=== PATIENT | female | born 1955 | race Caucasian/White ===

== ENCOUNTER 2016-02-28 09:03 | Day surgery (SDC) | payer OTHER ==
[2016-02-28] MEDS ORDERED: IRON SUCROSE INJECTION 100 MG in SODIUM CHLORIDE 100 ML IVPB ONE (09:30)
[2016-02-28 12:33] VITALS: BP 125/84; PULSE 72
== END 2016-02-28 10:45 | disposition home or self-care (01) ==
LOC: FINFUSION 09:03 → FM/S 09:03 → FINFUSION 10:45
PROVIDERS: ATTEND Internal Medicine
PROC: 3E033GC Introduction of Other Therapeutic Substance into Peripheral Vein, Percutaneous Approach (ICD-10-PCS; principal; 2016-02-28)
DX: D50.9 Iron deficiency anemia, unspecified (principal)
CPT/HCPCS: 96365; J1756

== ENCOUNTER 2016-03-28 07:43 | Observation (INO) | payer OTHER ==
[2016-03-28] MEDS ORDERED: KETOROLAC TROMETHAMINE 30 MG/1 ML VIAL IVPUSH ONE ×2 (08:06→13:09)
--- NOTE | 2016-03-28 08:07 | PDOC ---
History of Present Illness - General Chief Complaint: Pain Stated Complaint: LEFT ABD PAIN Time Seen by Provider: 03/28/16 07:47 - History of Present Illness Initial Comments: 03/28/16 08:06 60-year-old female with a past medical history of hypertension, hypothyroidism, sinusitis (currently on Augmentin for the past 24 hours) Surgical history-appendectomy, gastric bypass 12 years ago, hernia repair 8 years ago Normal colonoscopy 3 years ago Patient complains of left upper quadrant to left mid abdominal pain, since yesterday, which she describes as severe and constant There is no change with eating or musculoskeletal maneuvers She denies any radiation to her back, or radiation to anywhere else on her abdomen She denies any nausea or vomiting She denies any diarrhea She states she had a normal bowel movement yesterday, without blood or black tarry stool She denies any urinary symptoms She denies any fevers or chills She states that she did eat dinner last night Patient states that she has had a recent sinus infection, and has been blowing her nose a lot, but the pain does not change with blowing her nose or coughing She denies any chest pain or shortness of breath She denies any other complaints at this time, and the remainder of the review of systems is negative Past History - Past Medical History Allergies/Adverse Reactions: Allergies Allergy/AdvReac Type Severity Reaction Status Date / Time guaifenesin [From Robitussin] Allergy Hives Verified 03/28/16 07:44 Home Medications: Ambulatory Orders Diltiazem Cd [Cardizem Cd -] 180 mg PO BID 04/13/14 Levothyroxine [Synthroid -] 125 mcg PO DAILY 04/13/14 Ramipril 0 mg PO ASDIR 05/08/15 Amoxicillin/Potassium Clav [Augmentin 875-125 Tablet] 1 each PO DAILY 03/28/16 Cholecalciferol (Vitamin D3) [Vitamin D3 -] 5,000 unit PO WE 03/28/16 Anemia: Yes HTN: Yes (CONTROLLED ON MEDICATIONS) Thyroid Disease: Yes (hypo) - Surgical History Abdominal Surgery: Yes (GASTRIC BIPASS 2003) - Psycho/Social/Smoking Cessation Hx Anxiety: No Suicidal Ideation: No Smoking History: Never smoked Have you smoked in the past 12 months: No Hx Alcohol Use: No Drug/Substance Use Hx: No Substance Use Type: None Hx Substance Use Treatment: No Review of Systems - Review of Systems Able to Perform ROS?: Yes Comments:: 03/28/16 08:11 12 point review of systems is as per history of present illness and otherwise negative *Physical Exam - Physical Exam Comments: 03/28/16 08:14 Physical exam Last Vital Signs Temp Pulse Resp BP Pulse Ox 99.9 F H 90 18 126/85 98 03/28/16 07:43 03/28/16 07:43 03/28/16 07:43 03/28/16 07:43 03/28/16 07:43 GENERAL: The patient is awake, alert, and fully oriented, and in no apparent distress. HEAD: Normal with no signs of trauma. EYES: sclera anicteric, conjunctiva are normal. ENT: Moist mucous membranes. NECK: Normal range of motion, supple LUNGS: Breath sounds equal, clear to auscultation bilaterally. No wheezes, and no crackles. HEART: Regular rate and rhythm, normal S1 and S2 without murmur, rub or gallop. ABDOMEN: The abdomen is soft, with hypoactive but present bowel sounds in all quadrants There is a well-healed midline scar, and laparoscopic surgery scars there is left upper quadrant tenderness to palpation, without rebound There is no left lower quadrant, for right sided abdominal tenderness there is no periumbilical abdominal tenderness There is no CVA tenderness EXTREMITIES: Normal range of motion, no edema. No clubbing or cyanosis. No cords, erythema, or tenderness. NEUROLOGICAL: Cranial nerves II through XII grossly intact. Normal speech, normal gait. Grossly nonfocal neurologic exam PSYCH: Normal mood, normal affect. SKIN: Warm, Dry, normal turgor, no rashes or lesions noted. ED Treatment Course - LABORATORY CBC & Chemistry Diagram: 03/28/16 08:18 03/28/16 08:18 Medical Decision Making - Medical Decision Making 03/28/16 08:20 60-year-old female with surgical history as noted above, with left upper quadrant abdominal pain which is been constant since yesterday I am concerned potentially about some kind of internal hernia due to her gastric bypass surgery history Would start with pain control, and CT scan of the abdomen and pelvis with oral and IV contrast EKG Normal sinus rhythm 84, normal axis Normal AV and IV conduction time Normal QTC Normal EKG 03/28/16 09:47 Laboratory Results - last 24 hr 03/28/16 03/28/16 03/28/16 08:05 08:18 08:18 WBC 6.2 RBC 4.50 Hgb 12.6 Hct 38.8 MCV 86.2 MCHC 32.6 RDW 14.2 Plt Count 269 MPV 7.1 L Sodium Potassium Chloride Carbon Dioxide Anion Gap BUN Creatinine Creat Clearance w eGFR Random Glucose Lactic Acid Calcium Total Bilirubin AST ALT Alkaline Phosphatase Creatine Kinase 146 H CK-MB (CK-2) 1.1 Troponin I < 0.03 L Total Protein Albumin Lipase Urine Color Yellow Urine Appearance Clear Urine pH 5.0 Ur Specific [place] 1.020 Urine Protein Negative Urine Glucose (UA) Negative Urine Ketones Negative Urine Blood Trace-lysed Urine Nitrite Negative Urine Bilirubin Negative Urine Urobilinogen 0.2 e.u/dl Ur Leukocyte Esterase Negative 03/28/16 03/28/16 08:18 08:30 WBC RBC Hgb Hct MCV MCHC RDW Plt Count MPV Sodium 137 Potassium 3.8 Chloride 100 Carbon Dioxide 29 H Anion Gap 8 BUN 13 Creatinine 0.5 L Creat Clearance w eGFR > 60 Random Glucose 119 H Lactic Acid 1.077 Calcium 8.8 Total Bilirubin 0.5 AST 22 ALT 24 Alkaline Phosphatase 78 Creatine Kinase CK-MB (CK-2) Troponin I Total Protein 6.3 L Albumin 3.4 L Lipase 29 Urine Color Urine Appearance Urine pH Ur Specific [place] Urine Protein Urine Glucose (UA) Urine Ketones Urine Blood Urine Nitrite Urine Bilirubin Urine Urobilinogen Ur Leukocyte Esterase 03/28/16 11:54 CT scan of the abdomen and pelvis with oral and IV contrast No evidence of bowel obstruction or free intra peritoneal fluid or air Status post gastric bariatric surgery There is a right paramedian epigastric and right periumbilical hernias containing fat only The pancreas, gallbladder, liver, and adrenal glands, and kidneys are normal No aortic aneurysm No pelvic pathology No CT evidence of acute diverticulitis or appendicitis No definite CT evidence of acute pathology is seen in the abdomen or pelvis Patient initially felt better after pain medications, but now is having abdominal pain again 03/28/16 11:56 Lactic acid 1.0 03/28/16 12:[address] Hernandez-Will place in observation Abdominal pain of uncertain etiology *DC/Admit/Observation/Transfer Diagnosis at time of Disposition: Abdominal pain - Discharge Dispostion Admit: Yes
[2016-03-28] MEDS ORDERED: SODIUM CHLORIDE 1,000 ML IV SCH (08:15)
[2016-03-28 08:16] VITALS: BMI 36.6
[2016-03-28 08:20] LABS: URINE APPEARANCE Clear; URINE BILIRUBIN Negative (NEGATIVE); URINE BLOOD Trace-lysed (NEGATIVE); URINE GLUCOSE (UA) Negative (NEGATIVE); URINE KETONE Negative (NEGATIVE); URINE LEUK ESTERASE Negative (NEGATIVE); URINE NITRITE Negative (NEGATIVE); URINE PROTEIN Negative (NEGATIVE); URINE UROBILINOGEN 0.2 E.U/dl (0.2-1.0)
[2016-03-28] MEDS ORDERED: KETOROLAC TROMETHAMINE 30 MG/1 ML VIAL ONE ×2 (08:20→12:50)
[2016-03-28 08:21] LABS: URINE COLOR YELLOW
[2016-03-28 08:58] LABS: MCH 28.1 pg (25.7-33.7); MCHC 32.6 g/dl (32.0-36.0); MEAN CELL VOLUME 86.2 fl (80-96); MEAN PLT VOLUME 7.1 fl (7.5-11.1); PLATELET COUNT 269 K/MM3 (134-434); RDW 14.2 % (11.6-15.6); WHITE BLOOD COUNT 6.2 K/mm3 (4.0-10.0)
[2016-03-28 09:06] LABS: ALBUMIN 3.4 g/dl (3.5-5.0); ALK PHOS 78 U/L (32-92); ANION GAP 8 (8-16); BILIRUBIN,TOTAL 0.5 mg/dl (0.2-1.0); CALCIUM 8.8 mg/dl (8.4-10.2); CO2 29 mmol/L (22-28); CPK(DFH) 146 IU/L (26-140); CREATININE 0.5 mg/dl (0.6-1.3); GLUCOSE,RANDOM 119 mg/dl (74-106); SGOT/AST 22 U/L (10-42); SGPT/ALT 24 U/L (10-40); TOT PROT 6.3 g/dl (6.4-8.3)
[2016-03-28 09:16] LABS: TROPONIN I (DFP) < 0.03 ng/ml (0.03-0.50)
[2016-03-28 09:37] LABS: CK MB 1.1 ng/ml (0.3-4.0)
[2016-03-28] MEDS ORDERED: PANTOPRAZOLE SODIUM 40 MG in SODIUM CHLORIDE 100 ML IVPB ONE (13:00)
[2016-03-28] MEDS ORDERED: PANTOPRAZOLE SODIUM 40 MG VIAL ONE (13:02)
--- NOTE | 2016-03-28 18:31 | HP ---
Admitting History and Physical - Admission Chief Complaint: Acute right lumbar abdominal pain of 2 days duration preceded by acute onset of cough. History of Present Illness: This 60 yr old w/f with hx of status post gastric bypass surgery, NIDDM, hypertension, obesity, vitamin b12 deficiency, chronic low back pain admitted via ER with acute right lumbar abdominal pain. History Source: Patient Limitations to Obtaining History: No Limitations - Past Medical History Cardiovascular: Yes: HTN, Hyperlipdemia, Other (mild tricuspid regurgitationm mild aortic regurgitation) Pulmonary: Yes: Bronchitis Gastrointestinal: Yes: Constipation, Diverticulosis, Gastritis, GERD, Peptic Ulcer Disease Hepatobiliary: No: Cirrhosis, Cholelithiasis, Cholecystitis, Choledocholithiasis , Hepatitis A, Hepatitis B, Hepatitis C, Other Renal/: No: Renal Failure, Renal Inusuff, BPH, Cancer, Hematuria, Hemodialysis , Neurogenic Bladder, Renal Calculi, UTI, Other Reproductive: Yes: Postmenopausal ...: No Heme/Onc: Yes: B12 Deficiency Psych: Yes: Anxiety Musculoskeletal: Yes: Chronic low back pain Rheumatology: No: Fibromyalgia, Gout, Lupus, Rheumatoid Arthritis, Sarcoidosis, Vasculitis, Other Endocrine: Yes: Diabetes Mellitus, Hypothyroidism Dermatology: No: Basal Cell, Cellulitis, Eczema, Melanoma, Psoriasis, Squamous Cell, Other - Past Surgical History Past Surgical History: Yes: Bariatric Surgery - Smoking History Smoking history: Never smoked Have you smoked in the past 12 months: No - Alcohol/Substance Use Hx Alcohol Use: No - Social History Usual Living Arrangement: Yes: With Spouse ADL: Independent History of Recent Travel: No Home Medications - Allergies Allergies/Adverse Reactions: Allergies Allergy/AdvReac Type Severity Reaction Status Date / Time guaifenesin [From Robitussin] Allergy Hives Verified 03/28/16 07:44 - Home Medications Home Medications: Ambulatory Orders Diltiazem Cd [Cardizem Cd -] 180 mg PO BID 04/13/14 Levothyroxine [Synthroid -] 125 mcg PO DAILY 04/13/14 Ramipril 0 mg PO ASDIR 05/08/15 Amoxicillin/Potassium Clav [Augmentin 875-125 Tablet] 1 each PO DAILY 03/28/16 Cholecalciferol (Vitamin D3) [Vitamin D3 -] 5,000 unit PO WE 03/28/16 Family Disease History - Family Disease History Family Disease History: Other: Father (HTN), Mother (scleroderma) Review of Systems - Review of Systems Constitutional: reports: Other (cough, right lumbar abdominal pain) Eyes: reports: No Symptoms HENT: reports: No Symptoms Neck: reports: No Symptoms Cardiovascular: reports: No Symptoms Respiratory: reports: Cough Gastrointestinal: reports: Abdominal Pain (right lumbar region) Genitourinary: reports: No Symptoms Breasts: reports: No Symptoms Reported Musculoskeletal: reports: Muscle Cramps (Muscle spasm of right lumbar abdominal wall) Neurological: reports: No Symptoms Endocrine: reports: No Symptoms Hematology/Lymphatic: reports: No Symptoms Psychiatric: reports: No Symptoms, Anxiety Physical Examination Vital Signs: Vital Signs Temperature 99 F 03/28/16 13:43 Pulse Rate 79 03/28/16 13:43 Respiratory Rate 17 03/28/16 13:43 Blood Pressure 126/65 03/28/16 13:43 O2 Sat by Pulse Oximetry (%) 95 03/28/16 13:43 Constitutional: Yes: Well Nourished, Mild Distress, Obese Eyes: Yes: Conjunctiva Clear, EOM Intact HENT: Yes: Atraumatic, Normocephalic Neck: Yes: Supple, Trachea Midline Cardiovascular: Yes: Regular Rate and Rhythm Respiratory: Yes: Regular, CTA Bilaterally Gastrointestinal: Yes: Normal Bowel Sounds, Soft, Abdomen, Obese, Tenderness ( right lumbar abdominal region) ...Rectal Exam: Yes: Deferred, Sphincter Tone Normal. No: Hemorrhoids/External Breast(s): Yes: WNL Musculoskeletal: Yes: Back Pain, Muscle Pain Edema: No Peripheral Pulses WNL: Yes Integumentary: Yes: WNL Neurological: Yes: Alert, Oriented Psychiatric: Yes: Alert, Oriented Imaging - Results Cat Scan: Report Reviewed Other: Report Reviewed (Lab data reviewed) Problem List - Problems (1) Abdominal pain Assessment/Plan: Observation, oral codeine to suppress the cough. Code(s): R10.9 - UNSPECIFIED ABDOMINAL PAIN (2) Acute bronchitis Assessment/Plan: oral Augmentin Code(s): J20.9 - ACUTE BRONCHITIS, UNSPECIFIED Assessment/Plan Reason for observation: acute right lumbar abdominal pain without rebound tenderness (pain was preceded by cough), oral codeine, oral Augmentin, total time spent 75 minutes.
[2016-03-28] MEDS ORDERED: CYANOCOBALAMIN (VITAMIN B-12) 1000 MCG/1 ML VIAL IM ONE (18:50)
[2016-03-28] MEDS ORDERED: AMOX TR/POT CLAV 875MG/125MG TABLETS (FP) PO ONE (18:55)
[2016-03-28] MEDS: OXYCODONE/APAP 5/325MG COMBO TABLET PO PRN (20:37)
[2016-03-28] MEDS ORDERED: CODEINE SO4 30 MG TABLET PO SCH (22:00)
[2016-03-29] MEDS: OXYCODONE/APAP 5/325MG COMBO TABLET PO PRN (03:27)
[2016-03-29 06:35] VITALS: BP 139/79; PULSE 72; TEMP 98
[2016-03-29] MEDS ORDERED: LEVOTHYROXINE NA 125 MCG TABLET (FP) PO SCH (07:00)
[2016-03-29] MEDS ORDERED: AMOX TR/POT CLAV 875MG/125MG TABLETS (FP) PO SCH ×2 (08:00)
[2016-03-29 08:52] LABS: BASOPHIL 0.2 % (0-2.0); EOSINOPHIL 1.6 % (0-4.5); MCH 28.9 pg (25.7-33.7); MCHC 33.3 g/dl (32.0-36.0); MEAN CELL VOLUME 86.7 fl (80-96); MEAN PLT VOLUME 7.1 fl (7.5-11.1); PLATELET COUNT 312 K/MM3 (134-434)
[2016-03-29 09:10] LABS: ALBUMIN 3.6 g/dl (3.5-5.0); ALK PHOS 85 U/L (32-92); ANION GAP 7 (8-16); BILIRUBIN,TOTAL 0.4 mg/dl (0.2-1.0); CALCIUM 9.1 mg/dl (8.4-10.2); CO2 28 mmol/L (22-28); CREATININE 0.5 mg/dl (0.6-1.3); GLUCOSE,RANDOM 152 mg/dl (74-106); SGOT/AST 24 U/L (10-42); SGPT/ALT 23 U/L (10-40); TOT PROT 6.6 g/dl (6.4-8.3)
--- NOTE | 2016-03-29 12:12 | EKG ---
Test Reason : Blood Pressure : / mmHG Vent. Rate : 084 BPM Atrial Rate : 084 BPM P-R Int : 174 ms QRS Dur : 076 ms QT Int : 358 ms P-R-T Axes : 052 027 042 degrees QTc Int : 423 ms NORMAL SINUS RHYTHM NORMAL ECG WHEN COMPARED WITH ECG OF 16-OCT-2008 10:26, CO INTERVAL HAS DECREASED Confirmed by KEANU LANCE MD ([id number]) on 03/29/2016 12:11:54 PM Referred By: RADHA FERGUSON Confirmed By:KEANU LANCE MD
--- NOTE | 2016-03-29 15:10 | DS ---
Physical Examination Vital Signs: Vital Signs Temperature 98 F 03/29/16 06:34 Pulse Rate 72 03/29/16 06:34 Respiratory Rate 18 03/29/16 09:00 Blood Pressure 139/79 03/29/16 06:34 O2 Sat by Pulse Oximetry (%) 95 03/29/16 09:00 Constitutional: Yes: Well Nourished, Calm, Mild Distress Eyes: Yes: Conjunctiva Clear, EOM Intact HENT: Yes: Atraumatic, Normocephalic Neck: Yes: Supple, Trachea Midline Cardiovascular: Yes: Regular Rate and Rhythm Respiratory: Yes: Regular, CTA Bilaterally, Cough Gastrointestinal: Yes: Normal Bowel Sounds, Soft ...Rectal Exam: Yes: Deferred Renal/: Yes: WNL Breast(s): Yes: WNL Musculoskeletal: Yes: WNL Extremities: Yes: WNL Edema: No Integumentary: Yes: WNL Neurological: Yes: Alert, Oriented ...Motor Strength: LUE (normal muscle strenght in all extremities) Psychiatric: Yes: Alert, Oriented Labs: CBC, BMP 03/29/16 08:07 03/29/16 08:07 Discharge Summary Reason For Visit: ABDOMINAL PAIN Current Active Problems Abdominal pain (Acute) Acute bronchitis (Acute) Condition: Improved - Instructions Diet, Activity, Other Instructions: Follow up with your primary care physician within 1-2 weeks. Call tomorrow for an appointment. Continue taking your home medications. Finish off your Augmentin Follow up in office at [facility] on Tuesday 8am. Total time spent over 30 minutes. Disposition: HOME - Home Medications Comprehensive Discharge Medication List: Ambulatory Orders Diltiazem Cd [Cardizem Cd -] 180 mg PO BID 04/13/14 Levothyroxine [Synthroid -] 125 mcg PO DAILY 04/13/14 Ramipril 0 mg PO ASDIR 05/08/15 Amoxicillin/Potassium Clav [Augmentin 875-125 Tablet] 1 each PO DAILY 03/28/16 Cholecalciferol (Vitamin D3) [Vitamin D -] 5,000 unit PO WE 03/28/16 Amox-Tr/K Cl [Augmentin 875-125mg Tablet -] 1 tab PO BID@0800,1730 tablet 03/29 Amox-Tr/K Cl [Augmentin 875-125mg Tablet -] 1 tab PO BID@0800,1730 #0 tablet Diltiazem Cd [Cardizem Cd -] 180 mg PO BID cap.cd.24h 03/29/16 Levothyroxine [Synthroid -] 125 mcg PO DAILY@0700 tablet 03/29/16
== END 2016-03-29 15:20 | disposition home or self-care (01) ==
LOC: FER 07:43 → FM/S 13:43
PROVIDERS: ADMIT Internal Medicine; ATTEND Internal Medicine
DX: R10.9 Unspecified abdominal pain (principal); I10 Essential (primary) hypertension; E11.9 Type 2 diabetes mellitus without complications; M54.5 Low back pain; E78.5 Hyperlipidemia, unspecified; E53.8 Deficiency of other specified B group vitamins; F41.8 Other specified anxiety disorders; E03.9 Hypothyroidism, unspecified; J20.9 Acute bronchitis, unspecified; J32.8 Other chronic sinusitis; Z98.84 Bariatric surgery status
CPT/HCPCS: 36415; 74177-TC; 80053; 81003; 82550; 82553; 83605; 83690; 84484; 85025; 85027; 87040; 87086; 93005; 99285-25; G0378

== ENCOUNTER 2016-05-29 09:13 | Day surgery (SDC) | payer OTHER ==
[2016-05-29] MEDS ORDERED: IRON SUCROSE INJECTION 100 MG in SODIUM CHLORIDE 100 ML IVPB ONE (09:30)
[2016-05-29 10:26] VITALS: BP 132/66; PULSE 70; TEMP 98.4; BMI 36.6
== END 2016-05-29 11:20 | disposition home or self-care (01) ==
LOC: FINFUSION 09:13 → FM/S 09:14 → FINFUSION 11:20
PROVIDERS: ATTEND Internal Medicine
PROC: 3E033GC Introduction of Other Therapeutic Substance into Peripheral Vein, Percutaneous Approach (ICD-10-PCS; principal; 2016-05-29)
DX: D64.9 Anemia, unspecified (principal)
CPT/HCPCS: 96365; J1756

== ENCOUNTER 2016-09-25 08:46 | Day surgery (SDC) | payer OTHER ==
[2016-09-25] MEDS ORDERED: IRON SUCROSE INJECTION 100 MG in SODIUM CHLORIDE 100 ML IVPB ONE (09:15)
[2016-09-25 09:18] VITALS: BP 130/70; PULSE 72; TEMP 98.3
== END 2016-09-25 09:45 | disposition home or self-care (01) ==
LOC: FINFUSION 08:46 → FM/S 08:50 → FINFUSION 09:45
PROVIDERS: ATTEND Internal Medicine
PROC: 3E033GC Introduction of Other Therapeutic Substance into Peripheral Vein, Percutaneous Approach (ICD-10-PCS; principal; 2016-09-25)
DX: D64.9 Anemia, unspecified (principal)
CPT/HCPCS: 96365; J1756

== ENCOUNTER 2017-01-22 09:21 | Day surgery (SDC) | payer OTHER ==
[2017-01-22] MEDS ORDERED: IRON SUCROSE INJECTION 100 MG in SODIUM CHLORIDE 100 ML IVPB ONE (09:45)
[2017-01-22 10:14] VITALS: TEMP 98.1
[2017-01-22 11:12] VITALS: PULSE 71
[2017-01-22 11:27] VITALS: BP 107/62
== END 2017-01-22 11:25 | disposition home or self-care (01) ==
LOC: FINFUSION 09:21 → FM/S 09:28 → FINFUSION 11:25
PROVIDERS: ATTEND Internal Medicine
PROC: 3E033GC Introduction of Other Therapeutic Substance into Peripheral Vein, Percutaneous Approach (ICD-10-PCS; principal; 2017-01-22)
DX: D50.9 Iron deficiency anemia, unspecified (principal)
CPT/HCPCS: 96365; 96366; J1756

== ENCOUNTER 2017-09-17 09:38 | Day surgery (SDC) | payer OTHER ==
[2017-09-17] MEDS ORDERED: IRON SUCROSE INJECTION 100 MG in SODIUM CHLORIDE 100 ML IVPB ONE (10:30)
[2017-09-17 10:32] VITALS: BP 111/70; PULSE 70; TEMP 98.5
== END 2017-09-17 11:00 | disposition home or self-care (01) ==
LOC: FINFUSION 09:38 → FM/S 09:41 → FINFUSION 11:00
PROVIDERS: ATTEND Internal Medicine
PROC: 3E033GC Introduction of Other Therapeutic Substance into Peripheral Vein, Percutaneous Approach (ICD-10-PCS; principal; 2017-09-17)
DX: D64.9 Anemia, unspecified (principal)
CPT/HCPCS: 96365; J1756

== ENCOUNTER 2018-03-25 06:37 | Observation (INO) | payer OTHER ==
[2018-03-25] MEDS ORDERED: SODIUM CHLORIDE 1,000 ML IV STA (07:13)
--- NOTE | 2018-03-25 07:15 | PDOC ---
History of Present Illness - General Chief Complaint: Pain, Acute Stated Complaint: ABDOMINAL PAIN Time Seen by Provider: 03/25/18 07:11 History Source: Patient Exam Limitations: No Limitations - History of Present Illness Initial Comments: 03/25/18 07:30 HPI 62 yr old w/f with hx of status post gastric bypass surgery, NIDDM, hypertension , hyperlipidemia, hypothyroidism, obesity, vitamin b12 deficiency, chronic low back pain p/w generalized abdominal pain x 3 days, intermittent, progressively worsening with radiation wrapping around to the back. Described as pressure like pain, not exacerbated or alleviated by anything. Has not tried any medications for the pain. No excessive NSAID use Recently dxd with Strep pharyngitis, currently on day 7/10 of antibiotics - Augmentin; currently with improvement of sx.. +recent travel, return from a 3 week vacation in February 2018 in [place]. Denies fever, chills, chest pain, SOB, palpitation, dizziness, weakness, N, V, D , hematuria, bladder and bowel problems, leg swelling, No sick contacts. Allergies: robitussin, mucinex Past Medical History: status post gastric bypass surgery, NIDDM, hypertension, obesity, vitamin b12 deficiency, chronic low back pain Social history: Lives with family. No smoking. No alcohol. No illicit drugs. Surgical history: gastric bypass, appendectomy, C section, hernia repair with mesh. PMD: Dr Mary STARKS Constitutional: no fevers or chills. No weakness. HEENT: no headache or dizziness. No congestion. CVS: no cp or syncope. Resp: no sob. No cough. Gastrointestinal: no nausea or vomiting. No diarrhea or constipation, no bloody stools. +abdominal pain. Genitourinary: no urinary sx, hematuria. No dysuria, urgency or frequency. MUSCULOSKELETAL: No joint pain and swelling. No neck pain. +back pain. SKIN: no redness or skin changes, no discharge, no rash. No wounds. Hematologic: no easy bruising/bleeding. NEUROLOGIC: No headache, dizziness, LOC or altered mental status. No weakness, numbness or tingling. Allergic/Immunologic: +medicine allergies. All other systems reviewed and negative, or as documented in HPI. PE: General: awake and alert, NAD. HEENT: NCAT, PERRL, EOMI, clear conjunctiva, anicteric, moist mucus membranes, clear oropharynx, no oral lesions.. Neck: neck supple, FROM Resp: CTAB, normal and even respirations, no respiratory distress CVS: RRR, no murmurs, 2+ peripheral pulses throughout, no peripheral edema Abdomen: soft, obese, +midline surgical scar present. umblical defect, reducible hernia noted. no skin changes or e/o strangulation/incarceration. Diffusely tender, no focality of tenderness; no rebound or guarding. No CVAT. Back: nontender, normal inspection and ROM MSK: no edema, DODSON x4, ROM intact. No clubbing or cyanosis. normal bulk and tone. Extremities: no calf tenderness Neuro: alert, oriented appropriately Skin: warm and well perfused, cap refill <2 sec, normal color; +LLE varicose veins. 03/25/18 10:55 03/25/18 11:26 Past History - Past Medical History Allergies/Adverse Reactions: Allergies Allergy/AdvReac Type Severity Reaction Status Date / Time guaifenesin [From Robitussin] Allergy Intermediate Hives Verified 09/25/16 09:16 Home Medications: Ambulatory Orders Levothyroxine [Synthroid -] 125 mcg PO DAILY 04/13/14 Ramipril 5 mg PO ASDIR 05/08/15 Cholecalciferol (Vitamin D3) [Vitamin D -] 5,000 unit PO DAILY 03/28/16 Diltiazem Cd [Cardizem Cd -] 180 mg PO BID cap.cd.24h 03/29/16 Amoxicillin/Potassium Clav [Augmentin 875-125 Tablet] 1 each PO BID 03/25/18 Anemia: Yes COPD: No HTN: Yes (CONTROLLED ON MEDICATIONS) Thyroid Disease: Yes (hypo) - Surgical History Abdominal Surgery: Yes (GASTRIC BIPASS 2004,[facility]) - Suicide/Smoking/Psychosocial Hx Smoking History: Never smoked Have you smoked in the past 12 months: No Hx Alcohol Use: No Drug/Substance Use Hx: No Substance Use Type: None Hx Substance Use Treatment: No *Physical Exam - Vital Signs Last Vital Signs Temp Pulse Resp BP Pulse Ox 98.7 F 90 20 158/82 96 03/25/18 06:43 03/25/18 06:43 03/25/18 06:43 03/25/18 06:43 03/25/18 06:43 Moderate Sedation - Procedure Monitoring Vital Signs: Procedure Monitoring Vital Signs Temperature 98.7 F 03/25/18 06:43 Pulse Rate 90 03/25/18 06:43 Respiratory Rate 20 03/25/18 06:43 Blood Pressure 158/82 03/25/18 06:43 O2 Sat by Pulse Oximetry (%) 96 03/25/18 06:43 ED Treatment Course - LABORATORY CBC & Chemistry Diagram: 03/25/18 07:41 03/25/18 07:41 Medical Decision Making - Medical Decision Making 03/25/18 07:31 See HPI for details Vital signs reviewed, wnl. DDx abdominal pain: Renal colic, biliary colic, metabolic/electrolyte derangements. GERD, PUD, esophageal spasm, pancreatitis, hepatitis, constipation , colitis, gastroenteritis, cholecystitis, UTI, pyelonephritis, ileus, SBO, medication side effect, hernia, diverticulitis, mesenteric ischemia. Prior notes reviewed, including admissions, discharges and consultations. laboratory results and imaging reviewed, basic labs and lytes wnl, notable for normal lactic, LFTs and lipase. +Leukocytosis of 13.4K lactic normal, so less likely ischemic gut or severe sepsis. UA_prelim with trace leuk esterase and WBCs so will treat as infection, followup urine cultures. treat as UTI, IV ceftriaxone does not appear septic or bacteremic, defer culture testing. ED course: IVF hydration, pepcid, morphine x 2 doses, with continued pain CT a/p neg for acute pathology, +supraumbilical hernia with some fat containments and mild stranding, but no e/o strangulation or incarceration. similar appearing fat containing ventral/umbilical hernia on prior CT on 2016. + ovarian cyst - not likely source of sx; no obstruction or inflammation/ infection noted. no e/o internal hernia, s/p gastric bypass surgery noted. no e/o ischemia. no diarrhea to suggest C diff. also consider medication side effect from the abx use x 1 week already. given continued pain, called to PMD Dr Black, admit for pain control of AP , symptom control, will come to evaluate as well. 03/25/18 12:04 *DC/Admit/Observation/Transfer Diagnosis at time of Disposition: Abdominal pain Qualifiers: Abdominal location: generalized Qualified Code(s): R10.84 - Generalized abdominal pain UTI (urinary tract infection) Qualifiers: Urinary tract infection type: site unspecified Hematuria presence: without hematuria Qualified Code(s): N39.0 - Urinary tract infection, site not specified - Discharge Dispostion Condition at time of disposition: Stable Decision to Admit order: Yes Decision to Admit order Date/Time: 03/25/18 12:04 Decision to Admit Order Category Date Time Status Decision to Admit to Hospital Routine Admission 03/25/18 11:23 Active - Referrals Referrals: Gabriel Hernandez MD [Primary Care Provider] - - Patient Instructions - Post Discharge Activity
[2018-03-25] MEDS ORDERED: FAMOTIDINE 20 MG/50 ML IVPB 20 MG/50 ML MG IVPB ONE ×2 (07:24→07:41)
[2018-03-25] MEDS ORDERED: morphine CARPU-JECT 4 MG/1 ML DISP.SYRIN IVPUSH ONE ×2 (07:24→10:31)
[2018-03-25] MEDS ORDERED: morphine SULFATE 4 MG/ML VIAL ONE ×2 (07:45→10:52)
[2018-03-25 08:15] LABS: PH,URINE 5.5 (4.5-8); URINE APPEARANCE Clear; URINE BILIRUBIN 1+ (NEGATIVE); URINE COLOR Amber; URINE GLUCOSE (UA) Negative (NEGATIVE); URINE KETONE Negative (NEGATIVE); URINE LEUK ESTERASE TRACE (NEGATIVE); URINE NITRITE Negative (NEGATIVE); URINE PROTEIN 1+ (NEGATIVE)
[2018-03-25 08:27] LABS: BASO % 0.2 % (0-2.0); EOS % 0.6 % (0-4.5); HEMATOCRIT 39.3 % (32.4-45.2); HEMOGLOBIN 12.4 GM/dl (10.7-15.3); LYMPH % 20.9 % (8-40); MCH 27.8 pg (25.7-33.7); MCHC 31.7 g/dl (32.0-36.0); MEAN CELL VOLUME 87.8 fl (80-96); MEAN PLT VOLUME 7.9 fl (7.5-11.1); MONO % 5.8 % (3.8-10.2); NEUT % 72.5 % (42.8-82.8); PLATELET COUNT 394 K/MM3 (134-434); RBC 4.47 M/mm3 (3.60-5.2); RDW 13.5 % (11.6-15.6); WHITE BLOOD COUNT 13.4 K/mm3 (4.0-10.8)
[2018-03-25 08:32] LABS: ALBUMIN 2.9 g/dl (3.4-5.0); ALK PHOS 89 U/L (45-117); ANION GAP 9 MMOL/L (8-16); BILIRUBIN,TOTAL 0.5 mg/dl (0.2-1); BLOOD UREA NITROGEN 10 mg/dl (7-18); CALCIUM 8.6 mg/dl (8.5-10); CHLORIDE 100 mmol/L (98-107); CO2 29 mmol/L (21-32); CREATININE 0.6 mg/dl (0.55-1.3); GLUCOSE,RANDOM 146 mg/dl (74-106); SGOT/AST 16 U/L (15-37); SGPT/ALT 16 U/L (13-61); SODIUM 138 mmol/L (136-145); TOT PROT 6.4 g/dl (6.4-8.2)
[2018-03-25 08:54] LABS: EPI CELLS 2+ /HPF; URINE MUCUS 1+; URINE RBC 0-2 /hpf (0-3)
[2018-03-25 09:51] LABS: LIPASE 157 U/L (73-393)
[2018-03-25] MEDS ORDERED: CEFTRIAXONE 1,000 MG in DEXTROSE 5%-WATER - 50 ML IVPB ONE (10:31)
[2018-03-25] MEDS ORDERED: cefTRIAXone SODIUM 1 GM VIAL ONE (10:52)
--- NOTE | 2018-03-25 12:11 | HP ---
Admitting History and Physical - Admission Chief Complaint: Acute abdominal pain of 3 days duration. History of Present Illness: This 62 yr old w/f with hx of recent acute streptococcal pharyngitis treated with Augmentin, status post bariatric surgery, vitamin b12 deficiency, low back pain, hypothyroidism, hyperlipidemia hypertension, type 2 diabetes, and status post appendectomy admitted via ER with acute supraumbilical abdominal pain radiating to both flanks and spine, and acute urinary tract infection. History Source: Patient Limitations to Obtaining History: No Limitations - Past Medical History Cardiovascular: Yes: HTN, Hyperlipdemia, Other (mild tricuspid regurgitation) Gastrointestinal: Yes: Constipation, Diverticulosis, Gastritis, GERD, Peptic Ulcer Disease, Other (status post gastric sleeve surgery) Hepatobiliary: No: Cirrhosis, Cholelithiasis, Cholecystitis, Choledocholithiasis , Hepatitis A, Hepatitis B, Hepatitis C, Other Renal/: Yes: UTI Reproductive: Yes: Postmenopausal Heme/Onc: Yes: B12 Deficiency Infectious Disease: Yes: Other (Recent onset of streptococcal pharyngitis) Psych: Yes: Anxiety Musculoskeletal: Yes: Chronic low back pain Endocrine: Yes: Diabetes Mellitus, Hypothyroidism - Past Surgical History Past Surgical History: Yes: Appendectomy, Bariatric Surgery - Smoking History Smoking history: Never smoked Have you smoked in the past 12 months: No - Alcohol/Substance Use Hx Alcohol Use: No History of Substance Use: reports: None - Social History Usual Living Arrangement: Yes: With Spouse ADL: Independent History of Recent Travel: No Home Medications - Allergies Allergies/Adverse Reactions: Allergies Allergy/AdvReac Type Severity Reaction Status Date / Time guaifenesin [From Robitussin] Allergy Intermediate Hives Verified 09/25/16 09:16 - Home Medications Home Medications: Ambulatory Orders Levothyroxine [Synthroid -] 125 mcg PO DAILY 04/13/14 Ramipril 5 mg PO ASDIR 05/08/15 Cholecalciferol (Vitamin D3) [Vitamin D -] 5,000 unit PO DAILY 03/28/16 Diltiazem Cd [Cardizem Cd -] 180 mg PO BID cap.cd.24h 03/29/16 Amoxicillin/Potassium Clav [Augmentin 875-125 Tablet] 1 each PO BID 03/25/18 Family Disease History - Family Disease History Family Disease History: Other: Father (HTN), Mother (scleroderma) Review of Systems - Review of Systems Constitutional: reports: Malaise, Weakness Eyes: reports: No Symptoms HENT: reports: No Symptoms, Throat Pain Neck: reports: No Symptoms Cardiovascular: reports: No Symptoms Respiratory: reports: No Symptoms Gastrointestinal: reports: Abdominal Pain (supraumbilical) Genitourinary: reports: No Symptoms Breasts: reports: No Symptoms Reported Musculoskeletal: reports: Back Pain Integumentary: reports: No Symptoms Neurological: reports: No Symptoms Endocrine: reports: No Symptoms Hematology/Lymphatic: reports: No Symptoms Psychiatric: reports: Anxiety Physical Examination Vital Signs: Vital Signs Temperature 98.7 F 03/25/18 06:43 Pulse Rate 90 03/25/18 06:43 Respiratory Rate 20 03/25/18 06:43 Blood Pressure 158/82 03/25/18 06:43 O2 Sat by Pulse Oximetry (%) 96 03/25/18 06:43 Constitutional: Yes: Well Nourished, Anxious, Moderate Distress Eyes: Yes: Conjunctiva Clear, EOM Intact HENT: Yes: Atraumatic, Normocephalic Neck: Yes: Supple, Trachea Midline Cardiovascular: Yes: Regular Rate and Rhythm Respiratory: Yes: Regular, CTA Bilaterally Gastrointestinal: Yes: Normal Bowel Sounds, Soft, Abdomen, Obese, Hepatomegaly, Splenomegaly, Tenderness (supraumbilical), Other (no rebound tenderness) ...Rectal Exam: Yes: Deferred Renal/: Yes: WNL Breast(s): Yes: WNL Musculoskeletal: Yes: Back Pain Extremities: Yes: WNL Edema: No Peripheral Pulses WNL: Yes Integumentary: Yes: WNL Neurological: Yes: Alert, Oriented ...Motor Strength: WNL Psychiatric: Yes: Alert, Oriented Labs: CBC, BMP 03/25/18 07:41 03/25/18 07:41 Imaging - Results Cat Scan: Report Reviewed Other: Report Reviewed (Lab data reviewed) Problem List - Problems (1) Abdominal pain Assessment/Plan: Observation, consultation to Systems Accountant, analgesics. Code(s): R10.9 - UNSPECIFIED ABDOMINAL PAIN (2) UTI (urinary tract infection) Assessment/Plan: Consultation ID Code(s): N39.0 - URINARY TRACT INFECTION, SITE NOT SPECIFIED Assessment/Plan Reason for admission and continued hospital care: acute supraumbilical abdominal pain, acute UTI, status post recent acute streptococcal pharyngitis, IV fluids, analgesics as needed, consultation to Systems Accountant, consultation to ID, DVT prophylaxis.
[2018-03-25] MEDS ORDERED: LEVOTHYROXINE NA 125 MCG TABLET (FP) PO SCH (12:45)
[2018-03-25] MEDS ORDERED: CYANOCOBALAMIN (VITAMIN B-12) 1000 MCG/1 ML VIAL IM ONE (12:48)
[2018-03-25 12:56] VITALS: BMI 35.4
[2018-03-25] MEDS: ENOXAPARIN NA (PORCINE) 40 MG/0.4 ML DISP.SYRIN SQ SCH (13:05)
[2018-03-25] MEDS: SODIUM CHLORIDE 0.45%/POT 20 MEQ/1,000 ML INFUS.BAG IV SCH (13:16)
--- NOTE | 2018-03-25 14:43 | EKG ---
Test Reason : Blood Pressure : / mmHG Vent. Rate : 082 BPM Atrial Rate : 082 BPM P-R Int : 164 ms QRS Dur : 078 ms QT Int : 374 ms P-R-T Axes : 052 015 015 degrees QTc Int : 436 ms NORMAL SINUS RHYTHM NORMAL ECG WHEN COMPARED WITH ECG OF 28-MAR-2016 08:11, NO SIGNIFICANT CHANGE WAS FOUND Confirmed by Fredis Paredes MD ([id number]) on 03/25/2018 2:43:10 PM Referred By: MEHRAN MCKEON Confirmed By:Fredis Paredes MD
[2018-03-25] MEDS ORDERED: morphine CARPU-JECT 2 MG/1 ML DISP.SYRIN ONE (22:44)
[2018-03-25] MEDS: MORPHINE SULFATE 2 MG/ML VIAL IVPUSH PRN (22:46)
[2018-03-26] MEDS: LEVOTHYROXINE NA 125 MCG TABLET (FP) PO SCH (06:27)
[2018-03-26 09:05] LABS: BASO % 0.2 % (0-2.0); EOS % 1.2 % (0-4.5); HEMATOCRIT 34.5 % (32.4-45.2); HEMOGLOBIN 11.3 GM/dl (10.7-15.3); LYMPH % 22.9 % (8-40); MCH 28.6 pg (25.7-33.7); MCHC 32.9 g/dl (32.0-36.0); MEAN CELL VOLUME 87.1 fl (80-96); MEAN PLT VOLUME 7.8 fl (7.5-11.1); MONO % 6.4 % (3.8-10.2); NEUT % 69.3 % (42.8-82.8); PLATELET COUNT 389 K/MM3 (134-434); RBC 3.96 M/mm3 (3.60-5.2); RDW 13.5 % (11.6-15.6); WHITE BLOOD COUNT 11.2 K/mm3 (4.0-10.8)
[2018-03-26 09:13] LABS: ALBUMIN 2.5 g/dl (3.4-5.0); ALK PHOS 88 U/L (45-117); ANION GAP 11 MMOL/L (8-16); BILIRUBIN,TOTAL 0.7 mg/dl (0.2-1); BLOOD UREA NITROGEN 6 mg/dl (7-18); CALCIUM 8.3 mg/dl (8.5-10); CHLORIDE 100 mmol/L (98-107); CO2 26 mmol/L (21-32); GLUCOSE,RANDOM 119 mg/dl (74-106); POTASSIUM 3.9 mmol/L (3.5-5.1); SGOT/AST 16 U/L (15-37); SGPT/ALT 16 U/L (13-61); SODIUM 137 mmol/L (136-145); TOT PROT 5.7 g/dl (6.4-8.2)
[2018-03-26 09:16] LABS: CREATININE < 0.6 mg/dl (0.55-1.3)
[2018-03-26] MEDS ORDERED: morphine CARPU-JECT 2 MG/1 ML DISP.SYRIN ONE ×2 (09:30→13:13)
[2018-03-26] MEDS: ENOXAPARIN NA (PORCINE) 40 MG/0.4 ML DISP.SYRIN SQ SCH (09:33)
[2018-03-26] MEDS: RAMIPRIL 5 MG CAPSULE (FP) PO SCH (09:33)
[2018-03-26] MEDS: CHOLECALCIFEROL (VITAMIN D3) 1,000 UNIT TABLET (FP) PO SCH (09:33)
[2018-03-26] MEDS: MORPHINE SULFATE 2 MG/ML VIAL IVPUSH PRN ×3 (09:34→20:16)
[2018-03-26] MEDS: CEFTRIAXONE 2 GM in DEXTROSE 5%-WATER 100 ML IVPB SCH (10:01)
[2018-03-26] MEDS ORDERED: DEXTROSE 5%-WATER 100 ML IVPB ONE (10:40)
[2018-03-26] MEDS: SODIUM CHLORIDE 0.45%/POT 20 MEQ/1,000 ML INFUS.BAG IV SCH (12:13)
--- NOTE | 2018-03-26 14:43 | PN ---
Progress Note, Physician Chief Complaint: Anterior abdominal pain. History of Present Illness: This 62 yr old w/f with hx of type 2 diabetes, hypertension, hyperlipidemia, vitamin b12 deficiency, status post gastric sleeve surgery admitted via ER with an acute supraumbilical abdominal pain, urinary tract infection, streptococcal pharyngitis, and acute leukocytosis. Patient reports that one day prior to onset of abdominal pain she experienced few episodes of nausea and vomiting. - Current Medication List Current Medications: Active Medications Cholecalciferol (Vitamin D3 -) 5,000 unit PO DAILY [facility] Last Admin: 03/26/18 09:33 Dose: 5,000 unit Diltiazem HCl (Cardizem Cd -) 180 mg PO BID [facility] Last Admin: 03/26/18 09:33 Dose: 180 mg Enoxaparin Sodium (Lovenox -) 40 mg SQ DAILY [facility] Last Admin: 03/26/18 09:33 Dose: 40 mg Potassium Chloride/Sodium Chloride (1/2ns+20meq Kcl) 20 meq in 1,000 mls @ 42 mls/hr IV ASDIR [facility] Last Admin: 03/26/18 12:13 Dose: 42 mls/hr Ceftriaxone Sodium 2 gm/ (Dextrose) 100 mls @ 200 mls/hr IVPB DAILY [facility]; Protocol Last Admin: 03/26/18 10:01 Dose: 200 mls/hr Levothyroxine Sodium (Synthroid -) 125 mcg PO DAILY@0700 [facility] Last Admin: 03/26/18 06:27 Dose: 125 mcg Morphine Sulfate (Morphine Sulfate) 2 mg IVPUSH Q4H PRN PRN Reason: PAIN SCALE 5-10 Last Admin: 03/26/18 13:15 Dose: 2 mg Ramipril (Altace -) 5 mg PO DAILY [facility] Last Admin: 03/26/18 09:33 Dose: 5 mg - Objective Vital Signs: Vital Signs Temperature 98.5 F 03/26/18 14:11 Pulse Rate 88 03/26/18 14:11 Respiratory Rate 16 03/26/18 14:11 Blood Pressure 101/54 L 03/26/18 14:11 O2 Sat by Pulse Oximetry (%) 95 03/26/18 14:11 Constitutional: Yes: Well Nourished, Calm, Moderate Distress Eyes: Yes: Conjunctiva Clear, EOM Intact HENT: Yes: Atraumatic, Normocephalic Neck: Yes: Supple, Trachea Midline Cardiovascular: Yes: Regular Rate and Rhythm Respiratory: Yes: Regular, CTA Bilaterally Gastrointestinal: Yes: Normal Bowel Sounds, Soft, Abdomen, Obese, Tenderness ( supraumbilical) ...Rectal Exam: Yes: Deferred Genitourinary: Yes: WNL Breast(s): Yes: WNL Musculoskeletal: Yes: Back Pain, Other (local tenderness of right lower posterior chest wall) Extremities: Yes: WNL Edema: No Peripheral Pulses WNL: Yes Integumentary: Yes: WNL Neurological: Yes: Alert, Oriented ...Motor Strength: WNL Psychiatric: Yes: Alert, Oriented Labs: CBC, BMP 03/26/18 06:00 03/26/18 06:00 - ....Imaging Cat Scan: Report Reviewed EKG: Report Reviewed Other: Report Reviewed (Lab data reviewed.) Problem List - Problems (1) Abdominal pain Assessment/Plan: IV Morphine as needed. Code(s): R10.9 - UNSPECIFIED ABDOMINAL PAIN (2) UTI (urinary tract infection) Assessment/Plan: IV Ceftriaxone. Code(s): N39.0 - URINARY TRACT INFECTION, SITE NOT SPECIFIED (3) Supraumbilical hernia Assessment/Plan: Referral to General Surgeon. Code(s): K43.9 - VENTRAL HERNIA WITHOUT OBSTRUCTION OR GANGRENE Assessment/Plan Reason for admission and continued hospital stay: Acute abdominal pain, supraumbilical hernia with ? obstruction, acute streptococcal pharyngitis, UTI, leukocytosis, IV fluids, IV Ceftriaxone, DVT prophylaxis, consultation to General Surgeon, ID, and Lead Network Engineer.
[2018-03-26] MEDS ORDERED: morphine CARPU-JECT 2 MG/1 ML DISP.SYRIN IVPUSH PRN ×2 (20:08→20:10)
[2018-03-27] MEDS: LEVOTHYROXINE NA 125 MCG TABLET (FP) PO SCH (06:31)
--- NOTE | 2018-03-27 09:17 | PN ---
Progress Note (short form) - Note Progress Note: ID CONSULT DICTATED RECURRENT UTI ABDOMINAL PAIN SYNDROME AWAIT C/S CONTINUE EMPIRIC CEFTRIAXONE GI/ SURGERY EVALUATION
[2018-03-27] MEDS ORDERED: DEXTROSE 5%-WATER 100 ML IVPB ONE (09:38)
[2018-03-27] MEDS: CEFTRIAXONE 2 GM in DEXTROSE 5%-WATER 100 ML IVPB SCH (09:42)
[2018-03-27] MEDS: ENOXAPARIN NA (PORCINE) 40 MG/0.4 ML DISP.SYRIN SQ SCH (09:43)
[2018-03-27] MEDS: RAMIPRIL 5 MG CAPSULE (FP) PO SCH (09:43)
[2018-03-27] MEDS: CHOLECALCIFEROL (VITAMIN D3) 1,000 UNIT TABLET (FP) PO SCH (09:51)
--- NOTE | 2018-03-27 11:21 | PN ---
Progress Note (short form) - Note Progress Note: Patient seen and consult to be dictated. Patient with several days of abdominal pain, diffusely with admission for eval/ Rx. Had mild leukocytosis, but no fever, chills, N/V/diarrhea. CT scan shows no evidence of bowel obstruction or colitis/diverticulitis. Reports normal colonoscopy 1-2 years ago at [facility]. s/p gastric bypass surgery in past and subsequent incisional hernia repair with mesh. Currently being treated with antibiotics for UTI (and had ?strep throat 2 weeks ago Rx with antibiotics) Feels somewhat better since admission with less abdominal pain. Tolerating PO diet and having BMs; no change in her abdominal c/o with eating/BM. Abdominal exam notable for moderately obese, soft abdomen with +BS non mass/ rebound or guarding. Healed midline scar. Nonspecific abdominal discomfort to pressure. Suspect some of symptoms due to UTI In view of improving WBC and abdominal c/o , would continue current regimen. Can consider use of Bentyl 10mg PO q8h for cramps and will follow clinically
--- NOTE | 2018-03-27 11:48 | CONSULT ---
- Consultation REQUESTING PROVIDER: CONSULT REQUEST: We have been asked to surgically evaluate this patient for ( specify). PCP:Gabriel Hernandez HISTORY OF PRESENT ILLNESS: PMHx: PSHx: Home Medications Medication Instructions Recorded Levothyroxine [Synthroid -] 125 mcg PO DAILY 04/13/14 Ramipril 5 mg PO ASDIR 05/08/15 Cholecalciferol (Vitamin D3) 5,000 unit PO DAILY 03/28/16 [Vitamin D -] Diltiazem Cd [Cardizem Cd -] 180 mg PO BID cap.cd.24h 03/29/16 Amoxicillin/Potassium Clav 1 each PO BID 03/25/18 [Augmentin 875-125 Tablet] Allergies Allergy/AdvReac Type Severity Reaction Status Date / Time guaifenesin [From Robitussin] Allergy Intermediate Hives Verified 09/25/16 09:16 REVIEW OF SYSTEMS: CONSTITUTIONAL: Absent: fever, chills, diaphoresis, generalized weakness, malaise, loss of appetite, weight change CARDIOVASCULAR: Absent: chest pain, syncope, palpitations, irregular heart rate, lightheadedness , peripheral edema RESPIRATORY: Absent: cough, shortness of breath, dyspnea with exertion, wheezing, stridor, hemoptysis GASTROINTESTINAL: Absent: abdominal pain, abdominal distension, nausea, vomiting, diarrhea, constipation, melena, hematochezia GENITOURINARY: Absent: dysuria, frequency, urgency, hesitancy, hematuria, flank pain, genital pain MUSCULOSKELETAL: Absent: myalgia, arthralgia, joint swelling, back pain, neck pain SKIN: Absent: rash, itching, pallor HEMATOLOGIC/IMMUNOLOGIC: Absent: easy bleeding, easy bruising, lymphadenopathy NEUROLOGIC: Absent: headache, focal weakness, paresthesias, dizziness, unsteady gait, seizure, mental status changes, bladder or bowel incontinence PSYCHIATRIC: Absent: anxiety, depression, suicidal or homicidal ideation, hallucinations. PHYSICAL EXAM: GENERAL: Awake, alert, and fully oriented, in no acute distress. HEAD: Normal with no signs of trauma. EYES: PERRL, sclera anicteric, conjunctiva clear. NECK: Normal ROM, supple without lymphadenopathy, JVD, or masses. LUNGS: Clear to auscultation bilat anteriorly. No wheezes, and no crackles. No accessory muscle use. HEART: Regular rate and rhythm. No murmurs ABDOMEN: Soft, nontender, not distended, normoactive bowel sounds, no guarding, no rebound, no masses. No organomegaly. MUSCULOSKELETAL: Normal ROM at all joints. No bony deformities or tenderness. No CVA tenderness. UPPER EXTREMITIES: 2+ pulses, warm, well-perfused. No cyanosis. Cap refill <2 seconds. No peripheral edema. LOWER EXTREMITIES: 2+ pulses, warm, well-perfused. No calf tenderness. No peripheral edema. NEUROLOGICAL: Normal speech, gait not observed. PSYCH: Cooperative. Good eye contact. Appropriate mood and affect. SKIN: Warm, dry, normal turgor, no rashes or lesions noted. Vital Signs Temperature 98.2 F 03/27/18 09:32 Pulse Rate 77 03/27/18 09:32 Respiratory Rate 18 03/27/18 09:32 Blood Pressure 114/64 03/27/18 09:32 O2 Sat by Pulse Oximetry (%) 95 03/27/18 09:33 Lab Results WBC 11.2 K/mm3 (4.0-10.8) H 03/26/18 06:00 RBC 3.96 M/mm3 (3.60-5.2) 03/26/18 06:00 Hgb 11.3 GM/dl (10.7-15.3) 03/26/18 06:00 Hct 34.5 % (32.4-45.2) 03/26/18 06:00 MCV 87.1 fl (80-96) 03/26/18 06:00 MCHC 32.9 g/dl (32.0-36.0) 03/26/18 06:00 RDW 13.5 % (11.6-15.6) 03/26/18 06:00 Plt Count 389 K/MM3 (134-434) 03/26/18 06:00 Sodium 137 mmol/L (136-145) 03/26/18 06:00 Potassium 3.9 mmol/L (3.5-5.1) 03/26/18 06:00 Chloride 100 mmol/L (98-107) 03/26/18 06:00 Carbon Dioxide 26 mmol/L (21-32) 03/26/18 06:00 Anion Gap 11 MMOL/L (8-16) 03/26/18 06:00 BUN 6 mg/dl (7-18) L 03/26/18 06:00 Creatinine < 0.6 mg/dl (0.55-1.3) 03/26/18 06:00 Random Glucose 119 mg/dl (74-106) H 03/26/18 06:00 Calcium 8.3 mg/dl (8.5-10) L 03/26/18 06:00
--- NOTE | 2018-03-27 11:51 | CONSULT ---
- Consultation REQUESTING PROVIDER: Mary CONSULT REQUEST: We have been asked to surgically evaluate this patient for abdominal pain PCP:Gabriel Hernandez HISTORY OF PRESENT ILLNESS: 62 y/o female sent from facility for nonspecific abdominal pain; she was seen last PM; no n/v; pain is ill defined when asked to qualify/quantify it; no ; ? crampy and episodic in nature; when seen she was eating w/o difficulty; no n/v; no GI/ c/o o/w. PMHx: hypothyroid/HTN/recent tx. for Strep pharngitis PSHx: LRYGP/ex-lap for bleeding and abdominal hernia repair w/mesh Home Medications Medication Instructions Recorded Levothyroxine [Synthroid -] 125 mcg PO DAILY 04/13/14 Ramipril 5 mg PO ASDIR 05/08/15 Cholecalciferol (Vitamin D3) 5,000 unit PO DAILY 03/28/16 [Vitamin D -] Diltiazem Cd [Cardizem Cd -] 180 mg PO BID cap.cd.24h 03/29/16 Amoxicillin/Potassium Clav 1 each PO BID 03/25/18 [Augmentin 875-125 Tablet] Allergies Allergy/AdvReac Type Severity Reaction Status Date / Time guaifenesin [From Robitussin] Allergy Intermediate Hives Verified 09/25/16 09:16 PHYSICAL EXAM: GENERAL: Awake, alert, and fully oriented, in no acute distress. HEAD: Normal with no signs of trauma. EYES: sclera anicteric, conjunctiva clear. NECK: Normal ROM, supple without lymphadenopathy, JVD, or masses. ABDOMEN: Soft, nontender, not distended, normoactive bowel sounds, no guarding, no rebound, no masses. No organomegaly. Healed scar; no discernible hernias on exam; o/w normal. MUSCULOSKELETAL: Normal ROM at all joints. No bony deformities or tenderness. No CVA tenderness. UPPER EXTREMITIES: 2+ pulses, warm, well-perfused. No cyanosis. Cap refill <2 seconds. No peripheral edema. LOWER EXTREMITIES: 2+ pulses, warm, well-perfused. No calf tenderness. No peripheral edema. NEUROLOGICAL: Normal speech, gait not observed. PSYCH: Cooperative. Good eye contact. Appropriate mood and affect. SKIN: Warm, dry, normal turgor, no rashes or lesions noted. Vital Signs Temperature 98.2 F 03/27/18 09:32 Pulse Rate 77 03/27/18 09:32 Respiratory Rate 18 03/27/18 09:32 Blood Pressure 114/64 03/27/18 09:32 O2 Sat by Pulse Oximetry (%) 95 03/27/18 09:33 Lab Results WBC 11.2 K/mm3 (4.0-10.8) H 03/26/18 06:00 RBC 3.96 M/mm3 (3.60-5.2) 03/26/18 06:00 Hgb 11.3 GM/dl (10.7-15.3) 03/26/18 06:00 Hct 34.5 % (32.4-45.2) 03/26/18 06:00 MCV 87.1 fl (80-96) 03/26/18 06:00 MCHC 32.9 g/dl (32.0-36.0) 03/26/18 06:00 RDW 13.5 % (11.6-15.6) 03/26/18 06:00 Plt Count 389 K/MM3 (134-434) 03/26/18 06:00 Sodium 137 mmol/L (136-145) 03/26/18 06:00 Potassium 3.9 mmol/L (3.5-5.1) 03/26/18 06:00 Chloride 100 mmol/L (98-107) 03/26/18 06:00 Carbon Dioxide 26 mmol/L (21-32) 03/26/18 06:00 Anion Gap 11 MMOL/L (8-16) 03/26/18 06:00 BUN 6 mg/dl (7-18) L 03/26/18 06:00 Creatinine < 0.6 mg/dl (0.55-1.3) 03/26/18 06:00 Random Glucose 119 mg/dl (74-106) H 03/26/18 06:00 Calcium 8.3 mg/dl (8.5-10) L 03/26/18 06:00 CT scan a/p reviewed IMP: abdominal pain of ? origin; no evidence of an acute surgical abdomen. PLAN: As per primary team; no evidence of an acute surgical abdomen requiring intervention; abdominal hernia may be f/u in the outpatient setting; a/a/u by the patient. Jason Douglas MD FACS
--- NOTE | 2018-03-27 12:25 | DS ---
Physical Examination Vital Signs: Vital Signs Temperature 98.2 F 03/27/18 09:32 Pulse Rate 77 03/27/18 09:32 Respiratory Rate 18 03/27/18 09:32 Blood Pressure 114/64 03/27/18 09:32 O2 Sat by Pulse Oximetry (%) 95 03/27/18 09:33 Labs: CBC, BMP 03/26/18 06:00 03/26/18 06:00 Discharge Summary Reason For Visit: ACUTE ABDOMINAL PAIN Current Active Problems Abdominal pain (Acute) Supraumbilical hernia (Acute) UTI (urinary tract infection) (Acute) Condition: Stable - Instructions Diet, Activity, Other Instructions: Continue present medications. Low carbohydrate low fat diet. Activity as tolerated. Follow up in office this coming Tuesday at 9am. Total time spent over 30 minutes. Referrals: Gabriel Hernandez MD [Primary Care Provider] - Disposition: HOME - Home Medications Comprehensive Discharge Medication List: Ambulatory Orders Cholecalciferol (Vitamin D3) [Vitamin D3 -] 5,000 unit PO DAILY tab 03/27/18 Diltiazem Cd [Cardizem Cd -] 180 mg PO BID cap.cd.24h 03/27/18 Levothyroxine [Synthroid -] 125 mcg PO DAILY@0700 tablet 03/27/18 Ramipril [Altace] 5 mg PO DAILY capsule 03/27/18 Continue present medications. Follow up in office 04/01/18 at 9am. Total time spent over 30 minutes.
[2018-03-27 13:30] VITALS: BP 104/53; PULSE 84; TEMP 98.7
--- NOTE | 2018-03-27 14:01 | CONS ---
DATE OF CONSULTATION: 03/27/2018 HISTORY: The patient is a 62-year-old female with a history of gastric bypass evaluated for urinary tract infection. The patient was admitted to the hospital on March 25, 2018 with a 2- to 3-day history of generalized abdominal pain. The patient had complained of supraumbilical pain associated with urinary frequency and urgency. She had recently been diagnosed with a Streptoccocal pharyngitis and was treated with a course of oral antibiotics. She had completed a week of treatment. Despite the treatment, she had complaints of urinary frequency and urgency consistent with previous symptoms of her urinary tract infections. She was admitted to the hospital where CAT scan of the abdomen and pelvis was performed. She was found to have postoperative changes from her gastric surgery as well as a small hiatal hernia. There was no evidence of bowel obstruction or CAT scan evidence of an acute process in the abdomen and pelvis. Cultures were obtained, and she was empirically treated with ceftriaxone. At the present time, she reports improvement in her urinary frequency and urgency. She denies any dysuria and hematuria. PAST MEDICAL HISTORY: Positive for gde-aukkeay-zriklaffu diabetes mellitus, morbid obesity, hypertension, hyperlipidemia, hypothyroidism. PAST SURGICAL HISTORY: Status post gastric bypass, appendectomy, section, hernia repair with mesh. ALLERGIES: ROBITUSSIN. MEDICATIONS: Synthroid, ramipril, Cardizem. SOCIAL HISTORY: She lives in the community. She is a nonsmoker, nondrinker. SYSTEMS REVIEW: Neurologic: No loss of consciousness, seizure activity, focal weakness. Cardiac: Negative chest pain or palpitations. Respiratory: Negative cough or sputum production. Gastrointestinal: As per HPI. Genitourinary: As per HPI. LABORATORY DATA: White count 13.4 on admission, presently 11.2, hematocrit 34.5, platelet count 389, creatinine 0.6. Urinalysis: 5-10 white cells. Liver enzymes normal. Lipase 157. PHYSICAL EXAMINATION: General: She is awake and alert. She is ambulatory. Vital Signs: Temperature 98.2, T-max 100.4, blood pressure 111/53, pulse 80 and regular, respirations 17 per minute. HEENT: Sclerae anicteric. Heart: Sounds S1, S2. Lungs: Clear. Abdomen: Obese, soft. No tenderness elicited. No mass, rebound, or rigidity. Extremities: Negative for edema. IMPRESSION: 1. Recurrent urinary tract infection. 2. Abdominal pain syndrome. 3. Recent Streptoccocal pharyngitis. PLAN: Await cultures. Continue empiric treatment. Urinary tract infection with ceftriaxone. GI and surgical evaluations for abdominal pain syndrome. Thank you for the kind referral. NAOMI FABIAN M.D. [id number]
--- NOTE | 2018-03-28 07:56 | CONS ---
DATE OF CONSULTATION: 03/27/2018 REASON FOR CONSULTATION: I was asked by Dr. Hernandez to evaluate this 62-year-old female admitted with abdominal pain. HISTORY OF PRESENT ILLNESS: The patient is a 62-year-old female with a history of hypothyroidism, hypertension, and a recent strep pharyngitis for which she received antibiotics. She is also status post gastric bypass surgery in the past and abdominal hernia repair with mesh. The patient was admitted to hospital with a several-day history of diffuse abdominal pain and discomfort. She did not have any fever or chills or any nausea, vomiting, or diarrhea. The patient was admitted via the emergency room and noted to have an elevated white count. A CT scan showed no evidence of an acute intraabdominal infection, i.e., colitis or diverticulitis. There was also no evidence of bowel obstruction. The patient was treated with IV antibiotics in view of the symptoms and elevated white count and has slowly improved. Her laboratory tests were consistent with a urinary tract infection. The patient has been seen by both Surgery and Infectious Disease. She is currently feeling somewhat better, but states that she still has some mild residual abdominal discomfort diffusely. She does not associate the pain with eating or moving her bowels or any change in position. She has not had similar complaints in the past. She believes she had a normal colonoscopy 1-2 years ago at [facility]. EXAMINATION: General: She is a well-developed, overweight female. HEENT: [place] conjunctiva. Lungs: Clear lungs. Cardiac: Regular rate and rhythm. . Abdomen: Soft, nontender abdomen with normoactive bowel sounds and mild diffuse discomfort to deep palpation without rebound or guarding. LABORATORY DATA: Her white count yesterday was 11.2 with a hemoglobin of 11.3 and hematocrit of 34.5. Her electrolytes were unremarkable with normal liver chemistries and a normal serum lipase level. IMPRESSION: Patient with nonspecific abdominal complaints of unclear etiology associated with elevated white count. She does have urinary tract infection for which she is on antibiotics and is clinically improving. The abdominal pain could be related to urinary tract infection. Alternatively, she may have an underlying viral enteritis. There is no evidence of bowel obstruction, colitis, or diverticulitis. There was no evidence of acute cholecystitis or hepatobiliary disease either. In view of the patients clinical improvement on antibiotics, would continue her on antibiotics and consider switching to p.o. medicine prior to discharge. No specific GI workup is recommended at this time, but will follow clinically as needed. BUSTER DORMAN M.D. JELLY/[id number]
== END 2018-03-27 13:30 | disposition home or self-care (01) ==
LOC: FER 06:37 → FM/S 12:17
PROVIDERS: ADMIT Internal Medicine; ATTEND Internal Medicine
PROC: 3E03329 Introduction of Other Anti-infective into Peripheral Vein, Percutaneous Approach (ICD-10-PCS; principal; 2018-03-25)
PROC: 3E033NZ Introduction of Analgesics, Hypnotics, Sedatives into Peripheral Vein, Percutaneous Approach (ICD-10-PCS; 2018-03-25)
PROC: 3E0337Z Introduction of Electrolytic and Water Balance Substance into Peripheral Vein, Percutaneous Approach (ICD-10-PCS; 2018-03-25)
PROC: 3E023GC Introduction of Other Therapeutic Substance into Muscle, Percutaneous Approach (ICD-10-PCS; 2018-03-25)
PROC: 3E013GC Introduction of Other Therapeutic Substance into Subcutaneous Tissue, Percutaneous Approach (ICD-10-PCS; 2018-03-25)
DX: R10.84 Generalized abdominal pain (principal); N39.0 Urinary tract infection, site not specified; K43.9 Ventral hernia without obstruction or gangrene; I10 Essential (primary) hypertension; E78.5 Hyperlipidemia, unspecified; E11.9 Type 2 diabetes mellitus without complications; D51.9 Vitamin B12 deficiency anemia, unspecified; M54.5 Low back pain; G89.29 Other chronic pain; E03.9 Hypothyroidism, unspecified; K21.9 Gastro-esophageal reflux disease without esophagitis; E66.01 Morbid (severe) obesity due to excess calories; Z68.35 Body mass index [BMI] 35.0-35.9, adult; Z98.84 Bariatric surgery status; Z88.8 Allergy status to other drugs, medicaments and biological substances
CPT/HCPCS: 36415; 74177-TC; 80053; 81003; 81015; 83605; 83690; 85025; 87040; 87086; 93005; 99283-25; G0378; J3480; J7030

== ENCOUNTER 2018-09-16 09:28 | Day surgery (SDC) | payer OTHER | END 2018-09-16 11:25 | disposition home or self-care (01) | LOC: FASU 09:28 → FM/S 09:31 → FASU 11:25 | DX: D64.9 Anemia, unspecified (principal) ==

== ENCOUNTER 2018-12-30 09:30 | Day surgery (SDC) | payer OTHER ==
[2018-12-30] MEDS ORDERED: IRON SUCROSE INJECTION 100 MG in SODIUM CHLORIDE 100 ML IVPB ONE (10:00)
[2018-12-30 10:47] VITALS: BP 120/70; PULSE 64; TEMP 99
== END 2018-12-30 10:48 | disposition home or self-care (01) ==
LOC: FINFUSION 09:30 → FM/S 09:35 → FINFUSION 10:48
PROVIDERS: ATTEND Internal Medicine
PROC: 3E033GC Introduction of Other Therapeutic Substance into Peripheral Vein, Percutaneous Approach (ICD-10-PCS; principal; 2018-12-30)
DX: D64.9 Anemia, unspecified (principal)
CPT/HCPCS: 96365; J1756

== ENCOUNTER 2020-01-05 09:53 | Day surgery (SDC) | payer OTHER ==
[2020-01-05 10:22] VITALS: BP 119/68; PULSE 64; TEMP 97.9; BMI 34.7
[2020-01-05] MEDS ORDERED: IRON SUCROSE INJECTION 100 MG in SODIUM CHLORIDE 100 ML IVPB ONE (10:30)
== END 2020-01-05 11:15 | disposition home or self-care (01) ==
LOC: FINFUSION 09:53 → FM/S 10:01 → FINFUSION 11:15
PROVIDERS: ATTEND Internal Medicine
PROC: 3E033GC Introduction of Other Therapeutic Substance into Peripheral Vein, Percutaneous Approach (ICD-10-PCS; principal; 2020-01-05)
DX: D64.9 Anemia, unspecified (principal)
CPT/HCPCS: 96365; J1756

== ENCOUNTER 2020-04-14 10:48 | Emergency (ER) | payer OTHER | END 2020-04-14 12:02 | disposition home or self-care (01) | LOC: JVIRT 10:48 | DX: U07.1 COVID-19 (principal) | CPT/HCPCS: C9803; G2251-GT; U0003 ==

== ENCOUNTER 2020-04-15 09:35 | Emergency (ER) | payer OTHER ==
[2020-04-15 09:51] VITALS: BMI 36.3
[2020-04-15 11:03] LABS: EPITHELIAL CELLS MANY /hpf
[2020-04-15] MEDS ORDERED: BAMLANIVIMAB 700 MG in SODIUM CHLORIDE 250 ML IVPB ONE (11:18)
[2020-04-15] MEDS ORDERED: CEPHALEXIN MONOHYDRATE 500 MG CAPSULE (UD) PO ONE (11:19)
[2020-04-15] MEDS ORDERED: CEPHALEXIN MONOHYDRATE 500 MG CAPSULE (UD) ONE (11:24)
[2020-04-15] MEDS ORDERED: ACETAMINOPHEN 325 MG TABLET (FP) PO ONE (14:21)
[2020-04-15] MEDS ORDERED: ACETAMINOPHEN 325 MG TABLET (FP) ONE (14:22)
[2020-04-15 16:53] VITALS: BP 118/72; PULSE 83
[2020-04-15 16:57] VITALS: TEMP 98.9
== END 2020-04-15 17:00 | disposition home or self-care (01) ==
LOC: FER 09:35
DX: U07.1 COVID-19 (principal); N30.00 Acute cystitis without hematuria
CPT/HCPCS: 81003; 81015; 87077; 87086; 87186; 99284-25; M0239; Q0239

== ENCOUNTER 2020-09-06 10:05 | Day surgery (SDC) | payer OTHER ==
[2020-09-06] MEDS ORDERED: diphenhydrAMINE HCL 50 MG CAPSULE PO SCH ×2 (10:30→10:45)
[2020-09-06] MEDS ORDERED: HYDROCORTISONE SOD SUCCINATE 100 MG/2 ML VIAL IVPUSH SCH ×2 (10:30→10:45)
[2020-09-06] MEDS ORDERED: IRON SUCROSE INJECTION 200 MG/100 ML BAG IVPB ONE (10:30)
[2020-09-06 10:34] VITALS: TEMP 98.3
[2020-09-06] MEDS ORDERED: IRON SUCROSE INJECTION 200 MG in SODIUM CHLORIDE 100 ML IVPB ONE (11:00)
[2020-09-06 12:07] VITALS: BP 116/78; PULSE 72
== END 2020-09-06 12:10 | disposition home or self-care (01) ==
LOC: FINFUSION 10:05 → FM/S 10:09 → FINFUSION 12:10
PROVIDERS: ATTEND Internal Medicine
PROC: 3E033GC Introduction of Other Therapeutic Substance into Peripheral Vein, Percutaneous Approach (ICD-10-PCS; principal; 2020-09-06)
DX: D50.9 Iron deficiency anemia, unspecified (principal)
CPT/HCPCS: 96365; J1756

== ENCOUNTER 2020-12-06 13:05 | Day surgery (SDC) | payer OTHER ==
[2020-12-06 13:48] VITALS: TEMP 98.3
[2020-12-06] MEDS ORDERED: HYDROCORTISONE SOD SUCCINATE 100 MG/2 ML VIAL IVPB SCH (14:15)
[2020-12-06] MEDS ORDERED: diphenhydrAMINE HCL 50 MG CAPSULE PO SCH (14:15)
[2020-12-06] MEDS ORDERED: IRON SUCROSE INJECTION 200 MG/100 ML BAG IVPB ONE (14:15)
[2020-12-06 15:11] VITALS: BP 123/69; PULSE 65
== END 2020-12-06 15:10 | disposition home or self-care (01) ==
LOC: FINFUSION 13:05 → FM/S 13:10 → FINFUSION 15:10
PROVIDERS: ATTEND Internal Medicine
PROC: 3E033GC Introduction of Other Therapeutic Substance into Peripheral Vein, Percutaneous Approach (ICD-10-PCS; principal; 2020-12-06)
DX: D50.9 Iron deficiency anemia, unspecified (principal)
CPT/HCPCS: 96365; J1756

== ENCOUNTER 2021-03-07 09:19 | Day surgery (SDC) | payer OTHER ==
[2021-03-07] MEDS ORDERED: IRON SUCROSE INJECTION 200 MG/100 ML BAG IVPB ONE (10:00)
[2021-03-07 11:10] VITALS: BP 117/62; PULSE 67; TEMP 98.1
== END 2021-03-07 11:11 | disposition home or self-care (01) ==
LOC: FINFUSION 09:19 → FM/S 09:26 → FINFUSION 11:11
PROVIDERS: ATTEND Internal Medicine
PROC: 3E033GC Introduction of Other Therapeutic Substance into Peripheral Vein, Percutaneous Approach (ICD-10-PCS; principal; 2021-03-07)
DX: D50.9 Iron deficiency anemia, unspecified (principal)
CPT/HCPCS: 96365; J1756

== ENCOUNTER 2021-09-05 08:52 | Day surgery (SDC) | payer OTHER ==
[2021-09-05] MEDS ORDERED: IRON SUCROSE INJECTION 300 MG in SODIUM CHLORIDE 250 ML IVPB ONE (09:45)
[2021-09-05 10:25] VITALS: BP 112/60; PULSE 70; RESP 18; TEMP 97.6
== END 2021-09-05 10:58 | disposition home or self-care (01) ==
LOC: FINFUSION 08:52 → FM/S 08:59 → FINFUSION 10:58
PROVIDERS: ATTEND Internal Medicine
PROC: 3E033GC Introduction of Other Therapeutic Substance into Peripheral Vein, Percutaneous Approach (ICD-10-PCS; principal; 2021-09-05)
DX: D50.9 Iron deficiency anemia, unspecified (principal)
CPT/HCPCS: 96365; J1756

== ENCOUNTER 2023-02-08 14:51 | Emergency (ER) | payer OTHER, MEDICARE ==
[2023-02-08] MEDS ORDERED: ACETAMINOPHEN 325 MG TABLET (FP) PO ONE (15:19)
[2023-02-08] MEDS ORDERED: ACETAMINOPHEN 325 MG TABLET (FP) ONE (16:01)
[2023-02-08 16:18] VITALS: BP 132/84; PULSE 91; RESP 16; TEMP 100.3; BMI 35.6
== END 2023-02-08 16:25 | disposition home or self-care (01) ==
LOC: FER 14:51
DX: U07.1 COVID-19 (principal)
CPT/HCPCS: 0241U-QW; 99283-25